=== PATIENT | male | born 1985 | race Caucasian/White ===

== ENCOUNTER 2024-01-18 18:05 | Emergency (ER) | payer OTHER, SELFPAY ==
[~2024-01-18] VITALS: Ht 170.2 cm; Wt 98.7 kg
[2024-01-18 18:11] VITALS: TEMP 97.2; O2SAT 96
[2024-01-18 18:40] VITALS: BP 160/110
[2024-01-18] MEDS: KETOROLAC 60MG 2ML VIAL IM ONE (20:13)
[2024-01-18] MEDS: dexAMETHasone 20MG/5ML VIAL IM ONE (20:15)
== END 2024-01-18 20:30 | disposition home or self-care (01) ==
LOC: M ED 18:05
DX: M25.571 Pain in right ankle and joints of right foot (principal); Z88.1 Allergy status to other antibiotic agents
CPT/HCPCS: 96372; 99283; J1100; J1885